=== PATIENT | female | born 1990 | race Caucasian/White ===

== ENCOUNTER 2018-04-21 17:36 | Emergency (ER) | payer BC, OTHER ==
--- NOTE | 2018-04-21 19:39 | EDPHY ---
H & P Stated Complaint: MID STERNAL CP/TINGLING IN HANDS POST GETTING HEPATITIS B SHOT Time Seen by Provider: 04/21/18 18:13 HPI/ROS: CHIEF COMPLAINT: Chest pain HISTORY OF PRESENT ILLNESS: A 28-year-old female presents with chest pain. Yesterday she received a hepatitis B vaccination. About 5 min after the the vaccination, she developed a rapid heart rate, the chest pain associated with tingling in both of her hands and around her lips. She was observed at the clinic and gradually her symptoms subsided. However, over the past day she has been intermittently anxious and intermittently has tingling in her fingers. Associated with chest discomfort with inspiration. No recent URI or prolonged travel. REVIEW OF SYSTEMS: complete 10 point ROS reviewed and is negative except for the noted elements in the HPI - Personal History LMP (Females 10-55): 8-14 Days Ago Current Tetanus Diphtheria and Acellular Pertussis (TDAP): Yes - Medical/Surgical History Hx Asthma: No Hx Chronic Respiratory Disease: No Hx Diabetes: No Hx Cardiac Disease: No Hx Renal Disease: No Hx Cirrhosis: No Hx Alcoholism: No Hx HIV/AIDS: No Hx Splenectomy or Spleen Trauma: No Other PMH: DENIES - Social History Smoking Status: Never smoked Alcohol Use: Sober Drug Use: None - Physical Exam Exam: General Appearance: Alert, pleasant Eyes: Pupils equal and round, no conjunctival pallor or injection ENT, Mouth: Mucous membranes moist Neck: Normal inspection Respiratory: Lungs are clear to auscultation Cardiovascular: Regular rate and rhythm, no murmur Gastrointestinal: Abdomen is soft and nontender Neurological: A&O, nonfocal, normal gait Skin: Warm and dry, no rash Extremities: Nontender, no pedal edema Psychiatric: Anxious Constitutional: Initial Vital Signs Temperature (C) 36.8 C 04/21/18 17:39 Heart Rate 72 04/21/18 17:39 Respiratory Rate 18 04/21/18 17:39 Blood Pressure 103/79 04/21/18 17:39 O2 Sat (%) 99 04/21/18 17:39 O2 Delivery Mode Room Air Allergies/Adverse Reactions: No Known Allergies Allergy (Unverified 04/21/18 17:39) Home Medications: Medication Instructions Recorded NK [No Known Home Meds] 04/21/18 Medical Decision Making - Diagnostics EKG Interpretation: EKG interpreted by me reveals normal sinus rhythm, rate 62, no ST or T segment changes. Interpretation: Normal EKG Imaging Results: Imaging Impressions Chest X-Ray 04/21/18 18:13 Impression: Normal. Imaging: I viewed and interpreted images myself ED Course/Re-evaluation: This patient presents with tingling in the hands, tachycardia and chest discomfort after an immunization yesterday. Clinical scenario consistent with hyperventilation. Less likely is an episode of SVT. Discussed with the patient. She had multiple questions, which I tried to answer adequately. EKG reveals normal sinus rhythm, without evidence of ischemia. Chest x-ray is unremarkable. environmental monitoring technician revealed normal sinus rhythm throughout her emergency department stay. Perc score is 0 and I do not suspect pulmonary embolism in this patient. In addition, she has no risk factors for acute coronary syndrome and further testing is not indicated. I feel that she is safe and stable for discharge home. Warning signs discussed. Differential Diagnosis: Differential diagnosis includes though it is not limited to pneumonia, pneumothorax, pulmonary embolism, aortic dissection, pericarditis, acute coronary syndrome. Departure - Departure Disposition: Home, Routine, Self-Care Clinical Impression: Panic attack Chest pain Qualifiers: Chest pain type: intercostal pain Qualified Code(s): R07.82 - Intercostal pain Condition: Good Instructions: Chest Pain (ED), Panic Attack (ED) Additional Instructions: Follow-up in the clinic in 1-2 days for recheck. Return for worsening symptoms or any concerns. Referrals: Mali Brown MD [Primary Care Provider] - As per Instructions
[2018-04-21 19:47] VITALS: BP 108/62
--- NOTE | 2018-04-21 22:02 | CPEKG ---
Test Reason : OPEN Blood Pressure : / mmHG Vent. Rate : 062 BPM Atrial Rate : 061 BPM P-R Int : 123 ms QRS Dur : 091 ms QT Int : 409 ms P-R-T Axes : 034 063 034 degrees QTc Int : 416 ms Sinus rhythm Confirmed by Supriya Toth ([id number]) on 04/21/2018 10:01:55 PM Referred By: Confirmed By:Supriya Toth
== END 2018-04-21 19:46 | disposition home or self-care (01) ==
DX: F41.0 Panic disorder [episodic paroxysmal anxiety] (principal); R07.82 Intercostal pain